=== PATIENT | female | born 2000 | race Two or more races ===

== ENCOUNTER 2024-05-20 02:25 | Emergency (ER) | payer OTHER ==
[~2024-05-20] VITALS: Ht 154.9 cm; Wt 62.6 kg
[2024-05-20] MEDS ORDERED: METOCLOPRAMIDE HCL 5 MG/ML VIAL IM STA (03:33)
[2024-05-20] MEDS ORDERED: KETOROLAC TROMETHAMINE 30 MG VIAL IV STA (03:35)
[2024-05-20] MEDS ORDERED: 0.9 % SODIUM CHLORIDE 500 ML IV STA (03:35)
[2024-05-20] MEDS ORDERED: FAMOtidine 10 MG/ML (4ML VIAL) IV PUSH STA (03:36)
[2024-05-20] MEDS ORDERED: KETOROLAC TROMETHAMINE 30 MG VIAL ONE (03:40)
[2024-05-20] MEDS ORDERED: HYOSCYAMINE SULFATE 0.125 MG TAB.SUBL ONE (03:41)
[2024-05-20] MEDS ORDERED: FAMOTIDINE/PF 20 MG/2 ML VIAL ONE (03:41)
[2024-05-20] MEDS ORDERED: METOCLOPRAMIDE HCL 5 MG/ML VIAL ONE (03:41)
[2024-05-20] MEDS ORDERED: HYOSCYAMINE SULFATE 0.125 MG TAB.SUBL SL ONE (03:45)
== END 2024-05-20 05:44 | disposition home or self-care (01) ==
LOC: ER 02:27
DX: K29.70 Gastritis, unspecified, without bleeding (principal); F19.10 Other psychoactive substance abuse, uncomplicated; R11.10 Vomiting, unspecified; Z91.040 Latex allergy status

== ENCOUNTER 2024-06-11 16:26 | Emergency (ER) | payer OTHER ==
[~2024-06-11] VITALS: Ht 154.9 cm; Wt 59.0 kg
[2024-06-11] MEDS ORDERED: BENZONATATE100 MG PO (19:39)
[2024-06-11] MEDS ORDERED: ZITHROMAX TRI-500 MG PO (19:39)
== END 2024-06-11 19:51 | disposition home or self-care (01) ==
LOC: ER 16:29
DX: O26.891 Other specified pregnancy related conditions, first trimester (principal); Z3A.01 Less than 8 weeks gestation of pregnancy; R51.9 Headache, unspecified; J02.9 Acute pharyngitis, unspecified; Z91.040 Latex allergy status

== ENCOUNTER 2024-07-14 22:52 | Emergency (ER) | payer OTHER ==
[~2024-07-14] VITALS: Ht 154.9 cm; Wt 64.4 kg
[~2024-07-14 22:52] MED LIST: BENZONATATE100 MG PO; ZITHROMAX TRI-500 MG PO
[2024-07-14 23:19] VITALS: BP 92/60; O2SAT 100
[2024-07-15] MEDS ORDERED: ONDANSETRON HCL 2 MG/ML VIAL IV STA (00:09)
[2024-07-15] MEDS ORDERED: LACTOBACILLUS ACIDOPHILUS 1 CAP CAP PO STA (00:09)
[2024-07-15] MEDS ORDERED: FAMOTIDINE/PF 20 MG/2 ML VIAL IV PUSH STA (00:11)
[2024-07-15] MEDS ORDERED: 0.9 % SODIUM CHLORIDE 1,000 ML IV ONE (00:15)
[2024-07-15] MEDS ORDERED: ONDANSETRON HCL 2 MG/ML VIAL ONE (00:21)
[2024-07-15] MEDS ORDERED: FAMOTIDINE/PF 20 MG/2 ML VIAL ONE (00:22)
[2024-07-15] MEDS ORDERED: LACTOBACILLUS ACIDOPHILUS 1 CAP CAP PO ONE (00:22)
[2024-07-15 00:31] LABS: HEMATOCRIT 34.9 % (36.0-45.00); MEAN CORPUSCULAR HEMOGLOBIN 30.5 pg (27.00-32.0); MEAN CORPUSCULAR HGB CONC 34.3 g/dl (32.0-36.0); PLATELET COUNT 210 K/uL (150-450); RED BLOOD COUNT 3.92 M/uL (4.00-6.00); RED CELL DISTRIBUTION WIDTH 14.1 % (11.5-14.5)
[2024-07-15 00:48] LABS: CALCIUM 9.1 mg/dL (8.5-10.1); CREATININE SERUM 0.6 mg/dL (0.55-1.02); GFR 123.88; POTASSIUM 3.59 mEq/L (3.5-5.1)
[2024-07-15 01:36] LABS: URINE APPEARANCE Clear; URINE BILIRRUBIN Negative (NEGATIVE); URINE BLOOD Negative; URINE COLOR Yellow; URINE GLUCOSE Negative (NEGATIVE); URINE KETONE Trace (NEGATIVE); URINE LEUKOCYTE Negative; URINE NITRATE Negative; URINE PROTEIN Negative (NEGATIVE)
[2024-07-15 01:39] LABS: URINE BACTERIA 2264.3 uL (0.0-1933); URINE EPITHELIAL CELLS 15.9 uL (0.0-38.8); URINE RBC 20.6 uL (0.0-20.8); URINE WBC 28.4 uL (0.0-23.2)
[2024-07-15 01:58] LABS: URINE CAST 0.44 uL (0.0-1.40)
[2024-07-15] MEDS ORDERED: ONDANSETRON ODT4 MG PO (04:58)
[2024-07-15] MEDS ORDERED: INTESTINEX680 M1 PO (04:58)
== END 2024-07-15 05:01 ==
LOC: ER 22:52
PROVIDERS: General Practice
DX: O99.611 Diseases of the digestive system complicating pregnancy, first trimester (principal); K92.89 Other specified diseases of the digestive system; Z3A.12 12 weeks gestation of pregnancy; R19.7 Diarrhea, unspecified; Z91.040 Latex allergy status

== ENCOUNTER 2024-08-20 17:19 | Emergency (ER) | payer OTHER ==
[~2024-08-20] VITALS: Ht 154.9 cm; Wt 66.2 kg
[~2024-08-20 17:19] MED LIST changes: +INTESTINEX680 M1 PO; +ONDANSETRON ODT4 MG PO
[2024-08-20 21:36] LABS: PH,URINE 6.5 (5.0-8.0); URINE APPEARANCE Clear; URINE BILIRRUBIN Negative (NEGATIVE); URINE BLOOD Negative; URINE COLOR Yellow; URINE GLUCOSE Negative (NEGATIVE); URINE KETONE Negative (NEGATIVE); URINE LEUKOCYTE Negative; URINE NITRATE Negative; URINE PROTEIN Negative (NEGATIVE); URINE UROBILINOGEN 0.2 E.U./dl
[2024-08-20 21:37] LABS: URINE BACTERIA 376.6 uL (0.0-1933); URINE EPITHELIAL CELLS 3.6 uL (0.0-38.8); URINE WBC 7.5 uL (0.0-23.2)
[2024-08-20 21:45] LABS: BASO % 0.2 % (0.1-1.2); EOS # 0.16 (0.04-0.54); EOS % 1.3 % (0.7-7.0); HEMATOCRIT 34.4 % (34.1-44.9); HEMOGLOBIN 11.8 g/dL (11.2-15.7); LYMPH # 1.61 (1.18-3.74); LYMPH % 13.3 % (19.3-53.1); MEAN CORPUSCULAR HEMOGLOBIN 30.3 pg (25.6-32.2); MONO % 5.8 % (4.7-12.5); NEUT # 9.61 (1.56-6.13); NEUT % 79.1 % (34.0-71.1); PLATELET COUNT 217 K/uL (163-369); RED CELL DISTRIBUTION WIDTH 13.9 % (11.6-14.4)
[2024-08-20 22:05] LABS: URINE RBC 1.3 uL (0.0-20.8)
== END 2024-08-20 23:38 ==
LOC: ER 17:19
PROVIDERS: Preventive Medicine Public Health & General Preventive Medicine
DX: O26.892 Other specified pregnancy related conditions, second trimester (principal); R10.2 Pelvic and perineal pain; N89.8 Other specified noninflammatory disorders of vagina; Z3A.17 17 weeks gestation of pregnancy; Z91.040 Latex allergy status

== ENCOUNTER 2024-12-28 03:46 | Outpatient (CLI) | payer OTHER ==
[2024-12-28 02:32] VITALS: BP 122/86
[2024-12-28] MEDS ORDERED: PRENATAL TABLE1 EAC1 PO (04:04)
[2024-12-28 06:21] VITALS: BP 99/65; O2SAT 98
[2024-12-28 08:40] VITALS: BP 99/65
== END 2024-12-28 08:46 | disposition home or self-care (01) ==
LOC: OBS/DEL 03:46
PROVIDERS: ATTEND Obstetrics & Gynecology
DX: O26.893 Other specified pregnancy related conditions, third trimester (principal); Z3A.36 36 weeks gestation of pregnancy

== ENCOUNTER 2025-01-18 13:30 | Inpatient (IN) | payer OTHER ==
[~2025-01-18] VITALS: Ht 152.4 cm; Wt 2.7 kg
[~2025-01-18 13:30] MED LIST changes: +PRENATAL TABLE1 EAC1 PO
[2025-01-19 00:34] VITALS: BP 116/74
[2025-01-19 01:00] VITALS: BP 116/74
[2025-01-19] MEDS ORDERED: MORPHINE SULFATE 4 MG/ML CARTRIDGE IV PRN ×2 (01:15→16:00)
[2025-01-19] MEDS ORDERED: RINGERS SOLUTION,LACTATED 1,000 ML IV SCH (01:15)
[2025-01-19 01:24] LABS: BASO % 0.2 % (0.1-1.2); EOS # 0.05 (0.04-0.54); EOS % 0.5 % (0.7-7.0); LYMPH # 1.82 (1.18-3.74); LYMPH % 16.7 % (19.3-53.1); MEAN PLATELET VOLUME 12.40 fl (9.4-12.4); MONO # 0.66 (0.24-0.82); MONO % 6.1 % (4.7-12.5); NEUT # 8.28 (1.56-6.13); NEUT % 76.1 % (34.0-71.1); RED CELL DISTRIBUTION WIDTH 13.6 % (11.6-14.4)
[2025-01-19 01:40] LABS: INR < 0.93
[2025-01-19 03:49] VITALS: BP 110/65
[2025-01-19 03:55] VITALS: BP 123/76
[2025-01-19] MEDS ORDERED: OXYTOCIN 500 ML IV ONE (07:15)
[2025-01-19 07:37] VITALS: BP 123/66
[2025-01-19] MEDS ORDERED: CEFAZOLIN SODIUM 1,000 MG VIAL IV SCH (13:45)
[2025-01-19] MEDS ORDERED: OXYTOCIN 1,000 ML IV SCH ×2 (15:15→16:00)
[2025-01-19] MEDS ORDERED: MORPHINE SULFATE 4 MG/ML VIAL IV PRN (15:15)
[2025-01-19] MEDS ORDERED: OXYTOCIN 10 UNIT/ML (10ML) IV ONE (15:30)
[2025-01-19] MEDS ORDERED: ERYTHROMYCIN BASE OPHT 1GM EACH TUBE OP ONE (15:30)
[2025-01-19 22:56] VITALS: BP 104/71
[2025-01-20 03:16] VITALS: BP 116/75
[2025-01-20 09:20] VITALS: BP 107/69
[2025-01-20 12:39] LABS: BASO % 0.1 % (0.1-1.2); EOS # 0.00 (0.04-0.54); EOS % 0.0 % (0.7-7.0); LYMPH # 1.05 (1.18-3.74); LYMPH % 7.4 % (19.3-53.1); MEAN PLATELET VOLUME 12.30 fl (9.4-12.4); MONO # 0.79 (0.24-0.82); MONO % 5.6 % (4.7-12.5); NEUT # 12.23 (1.56-6.13); NEUT % 86.5 % (34.0-71.1); RED CELL DISTRIBUTION WIDTH 13.8 % (11.6-14.4)
[2025-01-20 16:58] VITALS: BP 112/69
[2025-01-21 02:51] VITALS: BP 117/73
[2025-01-21] MEDS ORDERED: OxyCODONE HCL 5 MG TABLET (ROXICODONE) PO PRN (06:00)
[2025-01-21 08:00] VITALS: BP 111/70
== END 2025-01-21 16:02 | disposition home or self-care (01) | DRG 788 ==
LOC: OB/GYN 01-19 00:57 → LDR 01-19 00:57 → O/R 01-19 13:49 → OB/GYN 01-19 16:17
PROVIDERS: ADMIT Obstetrics & Gynecology; ATTEND Obstetrics & Gynecology
PROC: 4A1HXCZ Monitoring of Products of Conception, Cardiac Rate, External Approach (ICD-10-PCS; 2025-01-19)
PROC: 10D00Z1 Extraction of Products of Conception, Low, Open Approach (ICD-10-PCS; principal; 2025-01-19 14:00)
DX: O33.8 Maternal care for disproportion of other origin (principal); Z3A.39 39 weeks gestation of pregnancy; Z37.0 Single live birth